=== PATIENT | female | born 1980 | race Caucasian/White ===

== ENCOUNTER 2019-07-21 19:37 | Emergency (ER) | payer SELFPAY ==
[~2019-07-21] VITALS: Ht 157.5 cm; Wt 79.7 kg
[2019-07-21 20:10] VITALS: BP 141/89
== END 2019-07-21 22:49 | disposition home or self-care (01) ==
LOC: ER 19:37
DX: G44.209 Tension-type headache, unspecified, not intractable (principal); Z63.79 Other stressful life events affecting family and household; Z88.0 Allergy status to penicillin
CPT/HCPCS: 99281